=== PATIENT | male | born 1980 | race Caucasian/White ===

== ENCOUNTER 2019-04-04 10:28 | Emergency (ER) | payer SELFPAY ==
[~2019-04-04] VITALS: Ht 172.7 cm; Wt 104.5 kg
[~2019-04-04 10:28] MED LIST: NO HOME MEDICATIONS; NORCO 325 MG-51 TAB PO
[2019-04-04 10:45] VITALS: BP 132/88; PULSE 111; TEMP 97.7
[2019-04-04 11:15] LABS: BASO % 0.4 % (0.0-2.0); EOS % 0.3 % (0-4.0); GRAN # 4.9 (1.4-6.5); GRAN % 49.7 % (42.2-75.2); HEMATOCRIT 45.1 % (42.0-52.0); HEMOGLOBIN 15.8 g/dl (13.5-18.0); LYMPH # 3.9 (1.2-3.4); LYMPH % 39.7 % (20.0-51.0); MEAN CELL VOLUME 96 fl (80.0-100.0); MEAN CORPUSCULAR HEMOGLOBIN 34 pg (27.0-31.0); MEAN CORPUSCULAR HGB CONC 35 g/dl (33.0-37.0); MEAN PLATELET VOLUME 10.5 fl (7.4-10.4); MONO # 0.9 (0.1-0.6); MONO % 9.4 % (1.7-9.3); PLATELET COUNT 265 K/mm3 (130-400)
[2019-04-04 11:20] LABS: COLLECTION METHOD CLEAN CATCH
[2019-04-04 11:25] LABS: ALANINE AMINOTRANSFERASE 48 U/L (21-72); ALBUMIN 4.6 gm/dL (3.5-5.0); ALKALINE PHOSPHATASE 75 U/L (50-136); ANION GAP 15 mmol/L (7-16); AST,SGOT 56 U/L (15-37); BILIRUBIN,TOTAL 0.3 mg/dL (0.0-1.0); BLOOD UREA NITROGEN 11 mg/dL (9-20); CALCIUM 8.7 mg/dL (8.4-10.2); CARBON DIOXIDE 23 mmol/L (22-30); CHLORIDE 108 mmol/L (98-107); CREATININE, serum 0.75 (0.66-1.25); GLUCOSE 104 mg/dL (74-106); POTASSIUM 4.4 mmol/L (3.4-5.0); SODIUM 147 mmol/L (137-145); TOTAL PROTEIN 8.2 gm/dL (6.4-8.2)
[2019-04-04 11:25] LABS: MUCOUS Present /lpf; PH 5 (5-8); SQUAMOUS EPITHELIAL 0-2 /hpf; URINE APPEARANCE Clear; URINE BACTERIA None Seen /hpf; URINE BILIRUBIN Negative (NEGATIVE); URINE BLOOD Negative (NEGATIVE); URINE COLOR Yellow; URINE GLUCOSE Negative (NEGATIVE); URINE KETONE Negative (NEGATIVE); URINE LEUKOCYTE ESTERASE Negative (NEGATIVE); URINE NITRATE Negative (NEGATIVE); URINE PROTEIN(semi-quant) 1+ (NEGATIVE); URINE RBC 0-2 /hpf; URINE UROBILINOGEN Negative (NEGATIVE)
[2019-04-04 11:44] LABS: TRICYCLIC ANTIDEPRESS URINE NEGATIVE
[2019-04-04 12:01] LABS: ACETAMINOPHEN < 10 ug/mL (10-30); ALCOHOL(ethanol),MEDICAL 244 mg/dL; SALICYLATE < 1.0 mg/dL
== END 2019-04-04 15:05 | disposition left against medical advice (07) ==
LOC: COL.ER 10:28
PROVIDERS: Emergency Medicine
DX: R45.851 Suicidal ideations (principal); F10.10 Alcohol abuse, uncomplicated; F32.9 Major depressive disorder, single episode, unspecified; Y90.8 Blood alcohol level of 240 mg/100 ml or more

== ENCOUNTER 2021-09-09 23:09 | Emergency (ER) | payer SELFPAY ==
[~2021-09-09] VITALS: Ht 175.3 cm; Wt 86.4 kg
[2021-09-09 23:12] VITALS: TEMP 98.3
[2021-09-10 00:36] VITALS: BP 132/63; PULSE 84
[2021-09-10] MEDS ORDERED: NORCO 325 MG-51 TAB PO (03:11)
== END 2021-09-10 04:10 | disposition home or self-care (01) ==
LOC: COL.ER 23:09
DX: S92.001A Unspecified fracture of right calcaneus, initial encounter for closed fracture (principal); S82.832A Other fracture of upper and lower end of left fibula, initial encounter for closed fracture; S01.01XA Laceration without foreign body of scalp, initial encounter; M25.561 Pain in right knee; F10.929 Alcohol use, unspecified with intoxication, unspecified; F17.200 Nicotine dependence, unspecified, uncomplicated; Z87.81 Personal history of (healed) traumatic fracture; V48.7XXA Person on outside of car injured in noncollision transport accident in traffic accident, initial encounter

== ENCOUNTER 2023-10-22 19:44 | Inpatient (IN) | payer OTHER ==
[~2023-10-22] VITALS: Ht 175.3 cm; Wt 100.2 kg
[2023-10-22] MEDS ORDERED: NS 1,000 ML IV ONE (20:45)
[2023-10-22] MEDS ORDERED: Albuterol/Ipratropium 3 MG-0.5 MG/3 ML Neb Soln IH ONE ×2 (20:45→23:15)
[2023-10-22 21:36] LABS: BASO # 0.1 K/mm3 (0.0-0.2); BASO % 0.5 % (0.0-2.0); EOS % 0.2 % (0.0-4.0); GRAN # 8.7 K/mm3 (1.4-6.5); HEMATOCRIT 45.9 % (42.0-52.0); HEMOGLOBIN 16.2 g/dl (13.5-18.0); LYMPH # 1.6 K/mm3 (1.2-3.4); LYMPH % 14.1 % (20.0-51.0); MEAN CELL VOLUME 92 fl (80.0-100.0); MEAN CORPUSCULAR HEMOGLOBIN 33 pg (27-31); MEAN CORPUSCULAR HGB CONC 35 g/dl (33.0-37.0); MEAN PLATELET VOLUME 11.1 fl (7.4-10.4); MONO % 8.9 % (1.7-9.3); PLATELET COUNT 238 K/mm3 (130-400); RED BLOOD COUNT 4.99 M/mm3 (4.20-5.60); REDCELL DISTRIBUTION WIDTH-CV 14.8 % (11.5-14.5)
[2023-10-22 21:39] LABS: ALANINE AMINOTRANSFERASE 36 U/L (0-55); ALKALINE PHOSPHATASE 61 U/L (40-150); ANION GAP 9 mmol/L (7-16); AST,SGOT 38 U/L (5-34); BILIRUBIN,TOTAL 0.3 mg/dL (0.2-1.2); BLOOD UREA NITROGEN 15 mg/dL (9-21); CALCIUM 9.1 mg/dL (8.4-10.2); CARBON DIOXIDE 21 mmol/L (22-29); CHLORIDE 105 mmol/L (98-107); GLUCOSE 97 mg/dL (70-99); POTASSIUM 4.6 mmol/L (3.5-4.5); SODIUM 135 mmol/L (136-145); TOTAL PROTEIN 7.5 gm/dL (6.2-8.1)
[2023-10-22 21:44] LABS: TROPONIN-I < 0.010 ng/mL (0.00-0.033)
[2023-10-22] MEDS ORDERED: Acetaminophen 500 MG TAB PO ONE (22:15)
[2023-10-23] VITALS (12 sets, daily range): BP systolic 126–152; BP diastolic 55–98; PULSE 58–98; TEMP 98–99.4
[2023-10-23] MEDS ORDERED: Oseltamivir 75 MG CAP PO SCH (00:24)
[2023-10-23] MEDS ORDERED: Albuterol 90 MCG/PUFF 8 GM MDI IH PRN (00:30)
[2023-10-23] MEDS ORDERED: Acetaminophen 325 MG TAB PO PRN (00:30)
[2023-10-23] MEDS ORDERED: Azithromycin 250 MG TAB PO SCH (00:30)
[2023-10-23] MEDS ORDERED: cefTRIAXone 2 G in Water For Injection,Sterile 20 ML IV SCH (00:30)
[2023-10-23] MEDS ORDERED: Melatonin 3 MG TAB PO PRN (00:30)
[2023-10-23] MEDS ORDERED: Ondansetron 4 MG/2 ML VIAL IV PRN (00:30)
[2023-10-23] MEDS ORDERED: Ibuprofen 400 MG TAB PO PRN (00:30)
[2023-10-23] MEDS ORDERED: Docusate Sodium 100 MG CAP PO PRN (00:30)
[2023-10-23] MEDS ORDERED: LEXAPRO 10MG10 MG PO (00:42)
--- NOTE | 2023-10-23 01:36 | NUR ---
ER CALLED FOR REPORT ON PATIENT COMING TO ROOM #308 REPORT RECIEVED FROM CECILLE FLOWERS.
--- NOTE | 2023-10-23 01:50 | NUR ---
MALE PATIENT ARRIVED TO ROOM #308 VIA WHEELCHAIR FROM ER. REPORT RECIEVED FROM [facility] [place] [facility] [facility]. PATIENT ASSISTED TO BEDSIDE RECLINER WITH STEADY GAIT. PATIENT ON 2 LITERS OF OXYGEN VIA NC. INTO TO LEFT FOREARM INTACT WITH NO COMPLICATIONS NOTED. TELEMETRY INTACT. PATIENT GIVEN SANDWICH TRAY AND SPRITE PER PATIENT REQUEST. ASSESSMENT AND INTERVIEW COMPLETED. PATIENT TOLERATED WELL. ALL NEEDS MET. PATIENT VERBALIZED UNDERSTANDING OF CALL LIGHT AND BED CONTROLS.
[2023-10-23 07:10] LABS: BASO # 0.1 K/mm3 (0.0-0.2); BASO % 0.5 % (0.0-2.0); EOS # 0.1 K/mm3 (0.0-0.7); EOS % 0.6 % (0.0-4.0); GRAN # 5.9 K/mm3 (1.4-6.5); GRAN % 59.8 % (42.2-75.2); HEMATOCRIT 46.1 % (42.0-52.0); HEMOGLOBIN 15.8 g/dl (13.5-18.0); LYMPH # 2.3 K/mm3 (1.2-3.4); LYMPH % 23.8 % (20.0-51.0); MEAN CELL VOLUME 93 fl (80.0-100.0); MEAN CORPUSCULAR HEMOGLOBIN 32 pg (27-31); MEAN CORPUSCULAR HGB CONC 34 g/dl (33.0-37.0); MEAN PLATELET VOLUME 11.4 fl (7.4-10.4); MONO # 1.5 K/mm3 (0.1-0.6); MONO % 14.9 % (1.7-9.3); PLATELET COUNT 246 K/mm3 (130-400); RED BLOOD COUNT 4.94 M/mm3 (4.20-5.60); REDCELL DISTRIBUTION WIDTH-CV 14.9 % (11.5-14.5)
[2023-10-23 07:16] LABS: CALCIUM 8.8 mg/dL (8.4-10.2); CREATININE, serum 0.96 mg/dL (0.72-1.25)
[2023-10-23] MEDS ORDERED: Escitalopram 10 MG TAB PO SCH (09:00)
[2023-10-23] MEDS ORDERED: Nicotine 21 MG DAILY PATCH TD PRN (09:00)
--- NOTE | 2023-10-23 09:11 | NUR ---
PATIENT ALERT AND ORIENTED X4 BUT VERY DROWSY. PATIENT REPORTS GENERALIZED BODY ACHES. PATIENT DENIES NEED FOR NICOTINE PATCH. PATIENT TOLERATED BREAKFAST BUT REPORTS APPETITE DECREASED THIS MORNING. NO FURTHER NEEDS. CALL LIGHT IN REACH.
[2023-10-23] MEDS ORDERED: NS 1,000 ML IV ONE (12:15)
[2023-10-23] MEDS ORDERED: Sodium Chloride 0.65% Nasal Irrig 45 ML BOTTLE NS PRN (12:30)
--- NOTE | 2023-10-23 15:02 | NUR ---
production worker and student, [place], met with patient to discuss discharge planning. Best point of contact is Marta, mother, P# [phone]. Patient is currently living in the homeless [facility] in [place]. PCP is currently Dr. Caruso in [place], Pharmacy is [facility] on [address]. No issues affording medications. Insurance is [employer]. No DPOA-HC and does not wish to complete one during the hospital stay. No DME and reports to be independent with ADLS> Patient struggles with transportation but is familiar with the [facility]. Patient would need assistance with transportation back to the [facility] at time of discharge. Discharge Plan: [facility]
--- NOTE | 2023-10-23 18:41 | NUR ---
Assumed care of patient at approximately 1115. Droplet precautions in place for Influenza A. Reports generalized achiness but denies pain. On RA. IVF started to LFA per MD order without s/s complications. Pt drowsy most of the afternoon and napped frequently.
--- NOTE | 2023-10-23 19:05 | NUR ---
PATIENT RESTING IN BED WITH EYES CLOSED IN THE APPEARANCE OF SLEEP WITH NO ACUTE DISTRESS NOTED. PATIENT ON 2 LITERS OF OXYGEN VIA NC. PATIENT EASILY AROUSED. TELEMETRY INTACT. NS INFUSING INTO LEFT FOREARM WITH NO COMPLICATIONS NOTED. PATIENT DENIES ANY NEEDS AT THIS TIME. PATIENT CARE ASSUMED FROM BREEZY AT THIS TIME. BED IN LOW POSITION WITH WHEELS LOCKED WITH RAILS UP X3 AND CALL LIGHT WITHIN REACH.
--- NOTE | 2023-10-23 19:20 | NUR ---
PATIENT RESTING IN BED WITH EYES CLOSED WITH TV ON WITH NO ACUTE DISTRESS NOTED. PATIENT EASILY AROUSED. ASSESSMENT COMPLETED AT THIS TIME. NS INFUSING INTO LEFT FOREARM WITH NO COMPLICATIONS NOTED. TELEMETRY INTACT. PATIENT REQUESTED ICE AND WATER. BOTH GIVEN. ALL NEEDS MET. BED IN LOW POSITION WTIH WHEELS LOCKED WITH RAILS UP X2 AND CALL LIGHT WITHIN REACH.
--- NOTE | 2023-10-23 20:30 | NUR ---
PATIENT RESTING IN BED WATCHING TV WITH NO ACUTE DISTRESS NOTED. PATIENT ON 2 LITERS OF OXYGEN VIA NC. NS INFUSING INTO LEFT FOREARM WITH NO COMPLICATIONS NOTED. MEDICATION ADMINISTRATION COMPLETED AT THIS TIME. PATIENT TOLERATED WELL. PATIENT C/O DIARREHA. PATIENT VERBALIZED UNDERSTANDING IT COULD BE FROM HIS ANTIBIOTICS OR THE FLU. PATIENT DENIES ANY NEEDS AT THIS TIME. BED IN LOW POSITION WITH WHEELS LOCKED WITH RAILS UP X2 AND CALL LIGHT WITHIN REACH.
[2023-10-24] VITALS (11 sets, daily range): BP systolic 119–146; BP diastolic 8–95; PULSE 57–83; TEMP 98.3–99.4
[2023-10-24 07:54] LABS: BASO % 0.6 % (0.0-2.0); EOS % 0.2 % (0.0-4.0); GRAN # 2.8 K/mm3 (1.4-6.5); HEMATOCRIT 46.8 % (42.0-52.0); HEMOGLOBIN 16.1 g/dl (13.5-18.0); LYMPH # 2.6 K/mm3 (1.2-3.4); LYMPH % 41.9 % (20.0-51.0); MEAN CELL VOLUME 93 fl (80.0-100.0); MEAN CORPUSCULAR HEMOGLOBIN 32 pg (27-31); MEAN CORPUSCULAR HGB CONC 34 g/dl (33.0-37.0); MEAN PLATELET VOLUME 11.5 fl (7.4-10.4); MONO # 0.8 K/mm3 (0.1-0.6); PLATELET COUNT 247 K/mm3 (130-400); RED BLOOD COUNT 5.05 M/mm3 (4.20-5.60); REDCELL DISTRIBUTION WIDTH-CV 15.1 % (11.5-14.5)
[2023-10-24 08:06] LABS: CALCIUM 9.4 mg/dL (8.4-10.2); CREATININE, serum 0.74 mg/dL (0.72-1.25); POTASSIUM 4.3 mmol/L (3.5-4.5)
--- NOTE | 2023-10-24 19:30 | NUR ---
Pt reports that he is overall improved but still c/o achiness. On RA. Afebrile since this am. Up this eveing, independent in room. Sitting in chair at this time. Pt requested Nicotine Patch and it was applied to RD.
--- NOTE | 2023-10-24 22:10 | NUR ---
POST CARDIOVERSION QTC WAS 458.
--- NOTE | 2023-10-25 01:14 | NUR ---
Pt alert and oriented x4. Sitting up in recliner chair, slightly anxious and is requsting melatonin before bedtime. VSS, shift assessment complete, medicated per emar. Denies pain at this time. Will be needing resources for when hes disharged about feeling anxious and depressed. Call light within reach.
[2023-10-25 01:18] VITALS: BP_SYST 146
[2023-10-25 03:38] VITALS: BP 139/83; PULSE 83; TEMP 99.5
[2023-10-25 05:28] VITALS: BP_SYST 139
--- NOTE | 2023-10-25 05:59 | NUR ---
IN THE FINANCIAL ADMINISTRATION OFFICER HOURS PT C/O DRY HEAVING AND NAUSEA, SYMPTOMS REPORTED TO PCT, WHEN I WENT TO TAKE THE PT ANJANA HE REFUSED STATING HE DIDNT WANT IT TO MAKE HIM FEEL WORSE. MORNING VITALS SHOWED AN ELEVEATED TEMP OF 99.5, WHEN I WENT TO OFFER HIM TYLOENOL HE STATED HE WAS VERY ANXIOUS AND HE HAD AN UPSET STOMACH BUT DIDNT WANT TO TAKE TYLENOL BECAUSE HE DIDNT WANT TO FEEL WORSE. HE TOLD ME HE WANTED TO EAT BEFORE HED TAKE THE TYLENOL SO I OFFERED HIM SOME CRACKERS TO TAKE WITH IT. PT STILL REFUSED AND THREATENED TO LEAVE AMA.
[2023-10-25] MEDS ORDERED: TAMIFLU 75MG75 MG PO (08:20)
[2023-10-25] MEDS ORDERED: OMNICEF 300MG300 MG PO (08:20)
--- NOTE | 2023-10-25 11:00 | NUR ---
During bedside report patient expressed his desire to leave. Upon entering room to complete assessment, patient was sitting up in chair- fully dressed- and expresses his desire to leave again and states he has called a ride. Educated patient that he may leave AMA or wait for the doctor to make rounds. Pt agreeable to wait but still upset. Spoke to DESIREE Wang at 0750 to request that they come see the patient. DESIREE Borges and Dr. Prado arrived arrived at approximately 0800 and visited with patient and placed discharge orders. After provider left room, this nurse d/c'd INT to RFA- however, the patient had already began peeling the tegaderm off. Upon entering the room to discuss discharge and that this nurse would in with completed discharge paperwork patient was found pacing room, raising his voice and stating "I just want to leave here so I can end my life." Pt's behavior continued to escalate and this nurse stepped out of the room to discuss with providers that were still in the hallway by the patient's room. MICHELLE called the CSU at [facility] for evaluation and a order was placed for suicide precautions. This nurse re-entered the room to begin removing items that patient could harm himself with. Pt picked up his belongings and walked out of the room. Security called. Glass Blower Helper notified. This nurse went down to the first floor and found patient with security already present. Pt was walking away from security and trying to find an exit. Pt's behavior continued to escalate but he eventually found the exit. PD was called and arrived to find patient outside by maryann. This nurse was notified by house supervisior that patient had arrived at the CSU and the CSU had [facility] bring patient to ED. Cassidy from the ED called requesting patient discharge paperwork so she can review with him prior to his discharge from the ED.
--- NOTE | 2023-10-25 12:55 | NUR ---
Cattle And Wheat Farmer was on clinical rounds with team and patient is cleared for discharge today, however made comments about dying by suicide to RN. SW was made referral to [facility] CSU for screening. SW was notified that patient eloped from the floor. MICHELLE collaborated with Hospitalist who advised patient needs to be brought back as he is suicidal. MICHELLE spoke with Security who advised patient eloped on foot and was off property. MICHELLE contacted [facility] to notify them and request assistance. Discharge Plan: [facility]
== END 2023-10-25 09:00 | disposition left against medical advice (07) | DRG 871 ==
LOC: COL.ER 19:44 → MEDICAL 10-23 00:30
PROVIDERS: Internal Medicine; Nurse Practitioner; Physician Assistant; ADMIT Internal Medicine
DX: A41.89 Other specified sepsis (principal); J18.9 Pneumonia, unspecified organism; J96.01 Acute respiratory failure with hypoxia; D84.9 Immunodeficiency, unspecified; R45.851 Suicidal ideations; F41.9 Anxiety disorder, unspecified; F17.210 Nicotine dependence, cigarettes, uncomplicated; J10.1 Influenza due to other identified influenza virus with other respiratory manifestations; Z53.21 Procedure and treatment not carried out due to patient leaving prior to being seen by health care provider; Z20.822 Contact with and (suspected) exposure to COVID-19; E66.9 Obesity, unspecified; J20.8 Acute bronchitis due to other specified organisms; Z90.89 Acquired absence of other organs; Z68.32 Body mass index [BMI] 32.0-32.9, adult; Z23 Encounter for immunization
CPT/HCPCS: J0696; J1650; J7030